=== PATIENT | female | born 1985 | race Hispanic/Latino ===

== ENCOUNTER 2019-01-28 06:56 | Outpatient (CLI) | payer BC ==
--- NOTE | 2019-01-28 07:40 | ULT ---
Sonogram right upper quadrant HISTORY: Abnormal liver function tests. Abdominal pain. FINDINGS: Small amount of layering echogenic material present within the dependent portion of the gal lbladder lumen. No shadowing stones. No gallbladder wall thickening or pericholecystic fluid. Common duct is 0.6 cm. Liver is diffusely echogenic. No intrahepatic biliary dilatation. No free fluid. IMPRESSION: Small amount of biliary sludge within chronic gallbladder dyskinesis. No evidence of acut e biliary obstruction. Hepatic steatosis.
== END 2019-01-28 06:57 | disposition home or self-care (01) ==
LOC: BICULT 06:56
PROVIDERS: ATTEND Internal Medicine
DX: R74.0 Nonspecific elevation of levels of transaminase and lactic acid dehydrogenase [LDH] (principal); K76.0 Fatty (change of) liver, not elsewhere classified; K82.8 Other specified diseases of gallbladder; K83.8 Other specified diseases of biliary tract
CPT/HCPCS: 76705

== ENCOUNTER 2020-05-28 07:37 | Outpatient (CLI) | payer BC ==
--- NOTE | 2020-05-28 09:30 | ULT ---
RIGHT UPPER QUADRANT ULTRASOUND: Date: 05/28/2020 HISTORY: Hepatic steatosis. Elevated liver function tests. COMPARISON: 01/28/2019 exam. FINDINGS: Real-time imaging of the right upper quadrant shows a normal appearing gallbladder. The common duct i s upper limits, measures in the 6-7 mm range. Liver parenchyma shows no focal abnormality. It has a s omewhat coarse echotexture and mild increased echogenicity. The right kidney is normal in size and no t obstructed. Pancreas is partially obscured. IMPRESSION: Slight increased echogenicity to the liver suggesting fatty change. POS: [facility]
== END 2020-05-28 07:38 | disposition home or self-care (01) ==
LOC: BICULT 07:37
PROVIDERS: ATTEND Internal Medicine
DX: K76.0 Fatty (change of) liver, not elsewhere classified (principal); R74.01 Elevation of levels of liver transaminase levels; R93.2 Abnormal findings on diagnostic imaging of liver and biliary tract
CPT/HCPCS: 76705

== ENCOUNTER 2022-01-02 19:41 | Emergency (ER) | payer BC | END 2022-01-02 21:25 | disposition home or self-care (01) | LOC: ERS 19:41 | DX: J02.9 Acute pharyngitis, unspecified (principal); E78.5 Hyperlipidemia, unspecified; E78.00 Pure hypercholesterolemia, unspecified; Z79.899 Other long term (current) drug therapy | CPT/HCPCS: 99282 ==

== ENCOUNTER 2024-09-30 09:00 | Inpatient (IN) | payer BC ==
[2024-10-04 10:29] VITALS: BMI 41.4
[2024-10-05] MEDS ORDERED: Ketorolac Tromethamine 30 MG (1 mL) VIAL ONE (07:40)
[2024-10-05] MEDS ORDERED: Acetaminophen 500 MG TAB ONE (07:40)
[2024-10-05] MEDS ORDERED: Heparin 5,000 UNITS/ML VIAL ONE (07:40)
[2024-10-05] MEDS ORDERED: EPINEPHrine 1 MG/ML VIAL ONE (09:37)
[2024-10-05] MEDS ORDERED: Bupivacaine 0.25% HCL 30 ML VIAL ONE (09:38)
[2024-10-05] MEDS ORDERED: Fentanyl 250 MCG/5 ML VIAL ONE (10:16)
[2024-10-05] MEDS ORDERED: Lidocaine 1% PF 5 ML VIAL ONE (10:16)
[2024-10-05] MEDS ORDERED: Rocuronium Bromide 10 MG/ML (10ML VIAL) ONE (10:16)
[2024-10-05] MEDS ORDERED: PROPOFOL 20 ML ONE (10:16)
[2024-10-05] MEDS ORDERED: Midazolam HCl 2 mg/2 ml Vial ONE (10:16)
[2024-10-05] MEDS ORDERED: Dexamethasone 20 MG/5 ML VIAL ONE (10:16)
[2024-10-05] MEDS ORDERED: Ondansetron PF 4 MG/2 ML Vial ONE (10:16)
[2024-10-05] MEDS ORDERED: CEFAZOLIN 2 GM VIAL ONE (10:21)
[2024-10-05] MEDS ORDERED: Labetalol HCl 100 MG/20 ML VIAL ONE (10:39)
[2024-10-05] MEDS ORDERED: SUGAMMADEX SODIUM 200 MG/2 ML VIAL ONE (11:25)
[2024-10-05] MEDS ORDERED: Promethazine HCl 25 MG/ML VIAL IM PRN ×2 (11:47→12:00)
[2024-10-05] MEDS ORDERED: Dextrose 50% Abboject 50 ML SYRINGE SLOW IVP PRN (11:47)
[2024-10-05] MEDS ORDERED: diphenhydrAMINE 50 MG/ML VIAL IVP PRN (11:47)
[2024-10-05] MEDS ORDERED: Glucagon 1 MG/ML KIT IM PRN (11:47)
[2024-10-05] MEDS ORDERED: Dextrose 5% in Water 1,000 ML IV PRN (11:47)
[2024-10-05] MEDS ORDERED: Ipratropium/Albuterol 3 ML NEB NEB PRN (11:47)
[2024-10-05] MEDS ORDERED: hydrALAZINE 20 MG/ML VIAL SLOW IVP PRN (11:47)
[2024-10-05] MEDS ORDERED: Zolpidem Tartrate 5 MG TAB PO PRN (11:58)
[2024-10-05] MEDS ORDERED: diphenhydrAMINE 50 MG/ML VIAL IM/IV PRN (12:00)
[2024-10-05] MEDS ORDERED: Naloxone HCl 0.4 mg/ml Vial IV PRN (12:00)
[2024-10-05] MEDS ORDERED: diphenhydrAMINE 25 MG CAP PO PRN (12:00)
[2024-10-05] MEDS ORDERED: Ondansetron PF 4 MG/2 ML Vial IVP PRN (12:00)
[2024-10-05] MEDS ORDERED: DISCONTINUE PREVIOUS NARCOTIC PAIN MEDICATIONS AND BENZODIAZEPINES FS PRN (12:05)
[2024-10-05] MEDS ORDERED: HYDROmorphone 0.5 MG/0.5 ML SYRINGE ONE (12:21)
[2024-10-05] MEDS ORDERED: fentaNYL 50 mcg/mL 1 mL Vial ONE (12:21)
[2024-10-05] MEDS: CEFAZOLIN 2 GM in Sodium Chloride 0.9% 100 ML IVPB SCH (18:12)
[2024-10-05] MEDS: Ketorolac Tromethamine 30 MG (1 mL) VIAL IVP SCH (18:12)
[2024-10-05] MEDS: Ondansetron PF 4 MG/2 ML Vial IVP PRN (18:15)
[2024-10-05] MEDS: D5 1/2 NS w/20 mEq KCL 1,000 ML IV SCH (19:12)
[2024-10-06] MEDS ORDERED: Hydrocodone-Acetamin 15 ML UDCUP PO PRN (04:55)
[2024-10-06 06:40] LABS: Anion Gap 13 mmol/L (10-20); BUN (Urea Nitrogen) 5 mg/dL (7.0-18.7); Calc. Creatinine Clearance 239 mL/min (70-130); Calcium 8.7 mg/dL (7.8-10.44); Carbon Dioxide 21 mmol/L (22-29); Chloride 108 mmol/L (98-107); Estimated GFR 121; Glucose 116 mg/dL (70-105); Potassium 4.1 mmol/L (3.5-5.1); Sodium 138 mmol/L (136-145)
[2024-10-06 06:45] LABS: #Basophils Less than 0.03 10x3/uL (0.0-0.2); #Eosinophils Less than 0.03 10x3/uL (0.0-0.7); %Basophils 0.1 % (0.0-1.0); %Lymphocytes 16.1 % (21.0-51.0); %Monocytes 6.9 % (0.0-10.0); %Neutrophils 76.4 % (42.0-75.0); Hematocrit 38.5 % (36.0-47.0); Hemoglobin 13.4 g/dL (12.0-16.0); Mean Corpuscular HGB CONC 34.8 g/dL (32.0-36.0); Mean Corpuscular Volume 86.3 fL (78.0-98.0); Mean Platelet Volume 9.5 fL (7.4-10.4); Platelet Count 243 10x3/uL (130-400); RBC Distribution Width 12.4 % (11.5-14.5); Red Blood Cell (RBC) Count 4.46 mill/uL (4.20-5.40)
[2024-10-06 07:59] VITALS: TEMP 98.7
[2024-10-06 08:01] VITALS: BP 125/84
[2024-10-06] MEDS: Enoxaparin 40 MG (0.4 mL) SYRINGE SC SCH (08:47)
[2024-10-06] MEDS: Pantoprazole 40 MG VIAL IVP SCH (08:47)
== END 2024-10-06 11:51 | disposition home or self-care (01) | DRG 621 ==
LOC: SURG A 10-05 06:59
PROVIDERS: ADMIT Surgery; ATTEND Surgery
PROC: 0DB60Z3 Excision of Stomach, Open Approach, Vertical (ICD-10-PCS; principal; 2024-10-05)
PROC: 8E0W0CZ Robotic Assisted Procedure of Trunk Region, Open Approach (ICD-10-PCS; 2024-10-05)
DX: E66.01 Morbid (severe) obesity due to excess calories (principal); Z87.891 Personal history of nicotine dependence
CPT/HCPCS: 36415; 80048; 85025; J0171; J0665; J1100; J1171; J1644; J1650; J1885; J2250; J2405; J2470; J2704; J3010; S2900

== ENCOUNTER 2024-10-04 10:21 | Outpatient (CLI) | payer BC ==
[2024-10-04 12:01] LABS: #Basophils 0.03 10x3/uL (0.0-0.2); %Basophils 0.3 % (0.0-1.0); %Eosinophils 0.8 % (0.0-10.0); %Lymphocytes 24.9 % (21.0-51.0); %Monocytes 7.6 % (0.0-10.0); %Neutrophils 66.2 % (42.0-75.0); Hematocrit 41.4 % (36.0-47.0); Hemoglobin 14.7 g/dL (12.0-16.0); Mean Corpuscular HGB CONC 35.5 g/dL (32.0-36.0); Mean Corpuscular Hemoglobin 30.1 pg (27.0-31.0); Mean Corpuscular Volume 84.8 fL (78.0-98.0); Mean Platelet Volume 9.5 fL (7.4-10.4); Platelet Count 244 10x3/uL (130-400); RBC Distribution Width 12.1 % (11.5-14.5); Red Blood Cell (RBC) Count 4.88 mill/uL (4.20-5.40)
[2024-10-04 12:11] LABS: BHCG - Serum Negative (NEGATIVE); Pregs Control Background? CLEAR/WHITE (CLR/WHITE); Pregs Control Bar Appear? YES (CONTROL BAR)
[2024-10-04 12:16] LABS: PTT 29.9 sec (22.9-36.1); Prothrombin Time 13.6 sec (12.0-14.7)
[2024-10-04 12:40] LABS: ALT (SGPT) 97 U/L (Less than 34); AST (SGOT) 45 U/L (11-34); Albumin 4.2 g/dL (3.1-4.5); Alkaline Phosphatase 105 U/L (40-110); Bilirubin, Direct 0.3 mg/dL (0.1-0.3); Bilirubin, Total 0.6 mg/dL (0.3-1.2); Protein, Total 7.7 g/dL (6.0-8.3)
[2024-10-04 12:42] LABS: ALT (SGPT) 99 U/L (Less than 34); AST (SGOT) 46 U/L (11-34); Albumin 4.2 g/dL (3.1-4.5); Alkaline Phosphatase 106 U/L (40-110); Anion Gap 14 mmol/L (10-20); BUN (Urea Nitrogen) 7 mg/dL (7.0-18.7); Bilirubin, Total 0.6 mg/dL (0.3-1.2); Calc. Creatinine Clearance 0 mL/min (70-130); Calcium 8.8 mg/dL (7.8-10.44); Carbon Dioxide 22 mmol/L (22-29); Chloride 105 mmol/L (98-107); Estimated GFR 121; Globulin 3.6 g/dL (2.4-3.5); Glucose 81 mg/dL (70-105); Potassium 3.5 mmol/L (3.5-5.1); Protein, Total 7.8 g/dL (6.0-8.3); Sodium 137 mmol/L (136-145)
== END 2024-10-04 10:22 | disposition home or self-care (01) ==
LOC: LABBT 10:21
PROVIDERS: ATTEND Surgery
DX: Z01.818 Encounter for other preprocedural examination (principal); E66.01 Morbid (severe) obesity due to excess calories
CPT/HCPCS: 80053; 83036; 84703; 85025; 85610; 85730; 93005; 93010